=== PATIENT | female | born 1945 | race Caucasian/White ===

== ENCOUNTER 2017-06-26 08:14 | Inpatient (IN) | payer OTHER ==
[2017-06-26] MEDS ORDERED: SODIUM CHLORIDE 0.9% 1000 ML INFUS.BAG IV ONE (08:54)
[2017-06-26] MEDS ORDERED: oxyCODONE HCL 5 MG TABLET PO ONE (08:56)
--- NOTE | 2017-06-26 09:11 | PDOC ---
Attending Attestation - Resident Resident Name: Rafia Acevedo - HPI HPI: 06/26/17 12:55 Pt presents to the ED complaining of generalized malaise and productive cough for the last three days. Also complains of nausea without vomiting and decreased PO intake. Patient has been consuming copious amounts of water. - Physicial Exam PE: 06/26/17 12:58 Agree with resident's exam. Lungs are clear. Abdomen is soft, non tender and non distended. - Medical Decision Making 06/26/17 12:59 Patient presents to the eD complaining of productive cough and generalized malaise. Initial differential included ACS, less likely sepsis or electrolyte disturbance. Labs show Na of 124. Case discussed with Dr. Gomze. Will admit to obs for continued fluid restriction and monitoring.
[2017-06-26] MEDS ORDERED: oxyCODONE HCL 5 MG TABLET ONE (09:15)
--- NOTE | 2017-06-26 09:17 | PDOC ---
History of Present Illness - General Chief Complaint: Weakness Stated Complaint: COUGH, WEAKNESS Time Seen by Provider: 06/26/17 08:37 History Source: Patient - History of Present Illness Initial Comments: 06/26/17 09:07 Patient is a 71 y.o. female with a PMH of CAD (s/p CABG + 5 stents), HTN, chronic pain who presents to the ED c/o 3-4 day h/o of productive (greenish) sputum as well as weakness. Patient denies any associated fevers/chills, nausea /vomiting, constipation/diarrhea but does note decreased PO intake 2/2 to her symptoms. Patient further denies any chest pain r/o dyspnea. Patient notes she has some difficulty swallowing, however this is 2-3 months duration and is supposed to get an EGD/Barium Esophagram later today. NKDA Surgical: R hip replacement, CABG PMD: Jasper Quiñonez Past History - Past Medical History Allergies/Adverse Reactions: Allergies Allergy/AdvReac Type Severity Reaction Status Date / Time No Known Allergies Allergy Verified 06/26/17 08:36 Home Medications: Ambulatory Orders Amlodipine Besylate [Norvasc -] 5 mg PO DAILY 06/26/17 Aspirin 81 mg PO DAILY 06/26/17 Clopidogrel Bisulfate [Plavix] 75 mg PO DAILY 06/26/17 Isosorbide Mononitrate [Imdur] 60 mg PO DAILY 06/26/17 Metoprolol Succinate 100 mg PO DAILY 06/26/17 Oxycodone HCl/Acetaminophen [Endocet 10-325 mg Tablet] 1 each PO PRN PRN Simvastatin 40 mg PO HS 06/26/17 Cardiac Disorders: Yes CVA: No COPD: No HTN: Yes Hypercholesterolemia: Yes - Surgical History Cardiac Surgery: Yes (2 stents) - Suicide/Smoking/Psychosocial Hx Smoking History: Current every day smoker Have you smoked in the past 12 months: Yes Number of Cigarettes Smoked Daily: 20 Information on smoking cessation initiated: No Hx Alcohol Use: No Drug/Substance Use Hx: No Substance Use Type: None Review of Systems - Review of Systems Constitutional: No: Chills, Fever Respiratory: Yes: Cough, Productive cough Cardiac (ROS): No: Chest Pain ABD/GI: No: Constipated, Diarrhea, Nausea, Vomiting : No: Burning, Dysuria All Other Systems: Reviewed and Negative *Physical Exam - Vital Signs Last Vital Signs Temp Pulse Resp BP Pulse Ox 98.8 F 85 18 146/73 94 L 06/26/17 08:32 06/26/17 08:32 06/26/17 08:32 06/26/17 08:32 06/26/17 08:32 - Physical Exam General Appearance: Yes: Nourished, Thin HEENT: positive: EOMI, ANGEL Neck: positive: Trachea midline, Supple. negative: Lymphadenopathy (R), Lymphadenopathy (L) Respiratory/Chest: positive: Lungs Clear, Normal Breath Sounds. negative: Crackles, Rales, Rhonchi, Stridor, Wheezing Cardiovascular: positive: S1, S2 Gastrointestinal/Abdominal: positive: Flat, Soft. negative: Distended, Guarding , Rebound, Hernia, Mass Extremity: positive: Normal Capillary Refill, Normal Inspection Integumentary: positive: Normal Color, Dry, Warm Neurologic: positive: Fully Oriented, Alert ED Treatment Course - LABORATORY CBC & Chemistry Diagram: 06/26/17 19:49 06/26/17 19:49 - RADIOLOGY Radiology Studies Ordered: Category Date Time Status CHEST PA & LAT [RAD] Stat Radiology 06/26/17 08:55 Ordered Medical Decision Making - Medical Decision Making 06/26/17 09:24 Patient is a 71 y.o. female who presents with 3-4 day h/o of productive cough and weakness. On PE patient's lungs are CLTA B/L and patient is non-toxic appearing. Initial clinical suspicion for pneumonia vs. Viral URI/Influenza. PLAN 1. CXR 2. CBC, CMP 3. UA 06/26/17 10:41 CMP significant for Na 124 - case d/w Dr. Barron (covers for patient's PCP Dr. Quiñonez) - will confirm patient's chronic hyponatremia level. Recommends fluid restriction w/IV fluids. CXR pending. UA negative. Patient resting comfortably. 06/26/17 13:29 CXR shows no effusion/consolidation/infiltrate. Patient admitted to Dr. Barron - requests Na tablet + NPO. Will continue to monitor while in ED. *DC/Admit/Observation/Transfer Diagnosis at time of Disposition: Hyponatremia - Discharge Dispostion Condition at time of disposition: Fair Admit: Yes - Referrals - Patient Instructions - Post Discharge Activity
[2017-06-26 09:19] LABS: HEMOGLOBIN 9.8 GM/dL (10.7-15.3)
[2017-06-26 09:28] LABS: URINE APPEARANCE CLEAR; URINE BILIRUBIN NEGATIVE (NEGATIVE); URINE BLOOD NEGATIVE (NEGATIVE); URINE COLOR LTYELLOW; URINE GLUCOSE (UA) NEGATIVE (NEGATIVE); URINE KETONE NEGATIVE (NEGATIVE); URINE LEUK ESTERASE NEGATIVE (NEGATIVE); URINE NITRITE NEGATIVE (NEGATIVE); URINE UROBILINOGEN NEGATIVE mg/dL (0.2-1.0)
[2017-06-26 09:32] LABS: EPI CELLS RARE /HPF (FEW); URINE PROTEIN 1+ (NEGATIVE)
[2017-06-26 09:35] LABS: EOS % 0.9 % (0-4.5); LYMPH % 43.2 % (8-40); MCH 26.1 pg (25.7-33.7); MCHC 32.8 g/dl (32.0-36.0); MEAN CELL VOLUME 79.8 fl (80-96); MEAN PLT VOLUME 7.6 fl (7.5-11.1); NEUT % 43.9 % (42.8-82.8); PLATELET COUNT 321 K/MM3 (134-434); RBC 3.76 M/mm3 (3.60-5.2); RDW 17.2 % (11.6-15.6); WHITE BLOOD COUNT 6.2 K/mm3 (4.0-10.0)
[2017-06-26 09:44] LABS: ALBUMIN 3.2 g/dl (3.4-5.0); ANION GAP 9 (8-16); BLOOD UREA NITROGEN 13 mg/dL (7-18); CALCIUM 8.2 mg/dL (8.5-10.1); CHLORIDE 91 mmol/L (98-107); CO2 24 mmol/L (21-32); GLUCOSE,RANDOM 94 mg/dL (74-106)
[2017-06-26 09:47] LABS: BILIRUBIN,TOTAL 0.3 mg/dL (0.2-1.0); CREATININE 0.9 mg/dL (0.55-1.02); SGPT/ALT 18 U/L (12-78); TOT PROT 7.2 g/dl (6.4-8.2)
[2017-06-26 09:50] LABS: ALK PHOS 104 U/L (45-117)
[2017-06-26 09:58] LABS: SGOT/AST 33 U/L (15-37)
[2017-06-26 09:59] LABS: POTASSIUM 5.2 mmol/L (3.5-5.1)
[2017-06-26 10:05] LABS: SODIUM 124 mmol/L (136-145)
[2017-06-26] MEDS ORDERED: guaiFENesin 200 MG/10 ML 10 ML UNIT-DOSE CUPS PO ONE (10:45)
[2017-06-26] MEDS ORDERED: guaiFENesin 200 MG/10 ML 10 ML UNIT-DOSE CUPS ONE (11:29)
[2017-06-26] MEDS ORDERED: SODIUM CHLORIDE 1 GM TABLET PO ONE (13:28)
[2017-06-26] MEDS ORDERED: CODEINE SO4 30 MG TABLET PO ONE (13:31)
[2017-06-26] MEDS ORDERED: CODEINE SO4 30 MG TABLET ONE (14:38)
--- NOTE | 2017-06-26 15:13 | EKG ---
Test Reason : Blood Pressure : / mmHG Vent. Rate : 080 BPM Atrial Rate : 080 BPM P-R Int : 210 ms QRS Dur : 104 ms QT Int : 394 ms P-R-T Axes : 017 054 090 degrees QTc Int : 454 ms SINUS RHYTHM WITH 1ST DEGREE A-V BLOCK MODERATE VOLTAGE CRITERIA FOR LVH, MAY BE NORMAL VARIANT NONSPECIFIC T WAVE ABNORMALITY ABNORMAL ECG NO PREVIOUS ECGS AVAILABLE Confirmed by MD DARI, RADHA ([id number]) on 06/26/2017 3:13:05 PM Referred By: Confirmed By:RADHA CHAPIN MD
[2017-06-26] MEDS ORDERED: SODIUM CHLORIDE 1,000 ML IV SCH (15:45)
[2017-06-26] MEDS ORDERED: ONDANSETRON 4 MG/2 ML VIAL IVPUSH ONE (17:41)
[2017-06-26] MEDS ORDERED: ONDANSETRON 4 MG/2 ML VIAL ONE (18:07)
[2017-06-26 19:59] LABS: HEMATOCRIT 31.3 % (32.4-45.2); HEMOGLOBIN 10.2 GM/dL (10.7-15.3); MCH 26.2 pg (25.7-33.7); MCHC 32.7 g/dl (32.0-36.0); MEAN CELL VOLUME 80.2 fl (80-96); MEAN PLT VOLUME 7.1 fl (7.5-11.1); PLATELET COUNT 275 K/MM3 (134-434); RDW 17.4 % (11.6-15.6); WHITE BLOOD COUNT 4.8 K/mm3 (4.0-10.0)
[2017-06-26 20:25] LABS: ANION GAP 9 (8-16); BLOOD UREA NITROGEN 12 mg/dL (7-18); CALCIUM 8.4 mg/dL (8.5-10.1); CHLORIDE 95 mmol/L (98-107); CO2 25 mmol/L (21-32); CREATININE 0.8 mg/dL (0.55-1.02); GLUCOSE,RANDOM 93 mg/dL (74-106); POTASSIUM 4.3 mmol/L (3.5-5.1); SODIUM 129 mmol/L (136-145)
[2017-06-26] MEDS ORDERED: ATORVASTATIN CA 20 MG TABLET (FP) PO SCH (22:00)
[2017-06-26] MEDS: guaiFENesin 200 MG/10 ML 10 ML UNIT-DOSE CUPS PO PRN (23:55)
[2017-06-26] MEDS: oxyCODONE HCL 5 MG TABLET PO PRN (23:56)
[2017-06-26] MEDS: ACETAMINOPHEN 325 MG TABLET (FP) PO PRN (23:57)
[2017-06-27 03:42] VITALS: BMI 21.3
[2017-06-27] MEDS: guaiFENesin 200 MG/10 ML 10 ML UNIT-DOSE CUPS PO PRN (06:37)
[2017-06-27] MEDS: ACETAMINOPHEN 325 MG TABLET (FP) PO PRN (09:42)
[2017-06-27] MEDS: oxyCODONE HCL 5 MG TABLET PO PRN (09:42)
[2017-06-27] MEDS ORDERED: CLOPIDOGREL BISULFATE 75 MG TABLET (FP) PO SCH (10:00)
[2017-06-27] MEDS ORDERED: ISOSORBIDE MONONITRATE 60 MG TAB.SR.24H (FP) PO SCH (10:00)
[2017-06-27] MEDS ORDERED: ASPIRIN COATED 81 MG TABLET.EC PO SCH (10:00)
[2017-06-27] MEDS ORDERED: METOPROLOL SUCCINATE 100 MG TAB.SR.24H (FP) PO SCH (10:00)
[2017-06-27] MEDS ORDERED: amLODIPine BESYLATE 5 MG TABLET (FP) PO SCH (10:00)
[2017-06-27 10:53] VITALS: BP 160/77; PULSE 84; TEMP 98.5
--- NOTE | 2017-06-27 12:48 | HP ---
Admitting History and Physical - Admission Chief Complaint: cough / not feeling well History of Present Illness: Patient is a 71 y.o. female with a PMH of CAD (s/p CABG + 5 stents), HTN, chronic pain who presents to the ED c/o 3-4 day h/o of productive (greenish) sputum as well as weakness. Current Smoker denies any associated fevers/chills , nausea/vomiting, constipation/diarrhea but does note decreased PO intake 2/2 to her symptoms. Patient further denies any chest pain r/o dyspnea. She is able to provide hx , known hx of hyponatremia, takes "salt pills". History Source: Patient, Family Member, Medical Record - Past Medical History Pulmonary: Yes: Bronchitis, Other (current smoker) Gastrointestinal: Yes: Gastritis, GERD Reproductive: Yes: Postmenopausal ...: No - Smoking History Smoking history: Current every day smoker Have you smoked in the past 12 months: Yes Aproximately how many cigarettes per day: 20 - Alcohol/Substance Use Hx Alcohol Use: No - Social History Usual Living Arrangement: Yes: With Spouse History of Recent Travel: No Home Medications - Allergies Allergies/Adverse Reactions: Allergies Allergy/AdvReac Type Severity Reaction Status Date / Time No Known Allergies Allergy Verified 06/26/17 08:36 - Home Medications Home Medications: Ambulatory Orders Amlodipine Besylate [Norvasc -] 5 mg PO DAILY 06/26/17 Aspirin 81 mg PO DAILY 06/26/17 Clopidogrel Bisulfate [Plavix] 75 mg PO DAILY 06/26/17 Isosorbide Mononitrate [Imdur] 60 mg PO DAILY 06/26/17 Metoprolol Succinate 100 mg PO DAILY 06/26/17 Oxycodone HCl/Acetaminophen [Endocet 10-325 mg Tablet] 1 each PO PRN PRN Simvastatin 40 mg PO HS 06/26/17 Review of Systems - Review of Systems Constitutional: reports: Weakness. denies: Chills, Fever, Loss of Appetite Eyes: reports: No Symptoms HENT: reports: No Symptoms Neck: reports: No Symptoms Cardiovascular: reports: No Symptoms Respiratory: reports: Cough. denies: Hemoptysis, Orthopnea, SOB on Exertion, Wheezing Gastrointestinal: reports: Indigestion Genitourinary: reports: No Symptoms Breasts: reports: No Symptoms Reported Musculoskeletal: reports: No Symptoms Integumentary: reports: No Symptoms Neurological: reports: No Symptoms Endocrine: reports: No Symptoms Hematology/Lymphatic: reports: No Symptoms Psychiatric: reports: No Symptoms Physical Examination Vital Signs: Vital Signs Temperature 98.5 F 06/27/17 09:00 Pulse Rate 84 06/27/17 09:00 Respiratory Rate 20 06/27/17 09:00 Blood Pressure 160/77 06/27/17 09:00 O2 Sat by Pulse Oximetry (%) 90 L 06/27/17 09:00 Constitutional: Yes: Well Nourished, No Distress, Anxious Eyes: Yes: Conjunctiva Clear, EOM Intact HENT: Yes: Atraumatic, Normocephalic Neck: Yes: Supple, Trachea Midline Cardiovascular: Yes: Regular Rate and Rhythm Respiratory: Yes: CTA Bilaterally Gastrointestinal: Yes: Normal Bowel Sounds Renal/: Yes: WNL Breast(s): Yes: WNL Musculoskeletal: Yes: WNL Extremities: Yes: WNL Edema: No Peripheral Pulses: Left Radial: 2+, Right Radial: 2+, Left Doralis Pedis: 2+, Right Dorsalis Pedis: 2+, Left Femoral: 2+, Right Femoral: 2+ Integumentary: Yes: WNL Neurological: Yes: Alert, Oriented Psychiatric: Yes: Alert, Oriented Labs: CBC, BMP 06/26/17 19:49 Problem List - Problems (1) Hyponatremia Assessment/Plan: restrict fluids NS @50cc overnight follow labs Code(s): E87.1 - HYPO-OSMOLALITY AND HYPONATREMIA (2) Cough Code(s): R05 - COUGH (3) CAD (coronary artery disease) Code(s): I25.10 - ATHSCL HEART DISEASE OF [place] CORONARY ARTERY W/O ANG PCTRS (4) Smoker Code(s): F17.200 - NICOTINE DEPENDENCE, UNSPECIFIED, UNCOMPLICATED (5) Smokers' cough Code(s): J41.0 - SIMPLE CHRONIC BRONCHITIS
[2017-06-27 12:54] LABS: ALBUMIN 3.1 g/dl (3.4-5.0); ALK PHOS 97 U/L (45-117); ANION GAP 9 (8-16); BILIRUBIN,TOTAL 0.2 mg/dL (0.2-1.0); BLOOD UREA NITROGEN 15 mg/dL (7-18); CHLORIDE 100 mmol/L (98-107); CO2 23 mmol/L (21-32); CREATININE 0.8 mg/dL (0.55-1.02); GLUCOSE,RANDOM 103 mg/dL (74-106); POTASSIUM 4.1 mmol/L (3.5-5.1); SGOT/AST 21 U/L (15-37); SGPT/ALT 18 U/L (12-78); SODIUM 132 mmol/L (136-145); TOT PROT 6.8 g/dl (6.4-8.2)
== END 2017-06-27 13:43 | disposition home or self-care (01) | DRG 641 ==
LOC: JER 08:14 → SUPCPDRO 08:14 → JERBED 13:00 → OBSVTOIN 15:45 → J8W 20:45
PROVIDERS: ADMIT Family Medicine; ATTEND Family Medicine
DX: E87.1 Hypo-osmolality and hyponatremia (principal); I25.10 Atherosclerotic heart disease of native coronary artery without angina pectoris; Z98.61 Coronary angioplasty status; Z95.1 Presence of aortocoronary bypass graft; R05 Cough; I10 Essential (primary) hypertension; F17.210 Nicotine dependence, cigarettes, uncomplicated
CPT/HCPCS: 36415; 71046-TC; 80048; 80053; 81003; 81015; 82550; 84484; 85025; 85027; 87804; 93005; 93010; 99284-25; G0378

== ENCOUNTER 2017-08-10 10:14 | Emergency (ER) | payer OTHER ==
[2017-08-10 10:33] VITALS: TEMP 98.2; BMI 20.9
--- NOTE | 2017-08-10 12:23 | PDOC ---
History of Present Illness - General Chief Complaint: Pain, Acute Stated Complaint: WEAKNESS Time Seen by Provider: 08/10/17 11:03 History Source: Patient, Family - History of Present Illness Timing/Duration: reports: other Past History - Past Medical History Allergies/Adverse Reactions: Allergies Allergy/AdvReac Type Severity Reaction Status Date / Time No Known Allergies Allergy Verified 08/10/17 10:29 Home Medications: Ambulatory Orders Clopidogrel Bisulfate [Plavix] 75 mg PO DAILY 06/26/17 Oxycodone HCl/Acetaminophen [Endocet 10-325 mg Tablet] 1 each PO PRN PRN Simvastatin 40 mg PO HS 06/26/17 Amlodipine Besylate [Norvasc -] 5 mg PO DAILY tablet 06/27/17 Aspirin Coated [Ecotrin -] 81 mg PO DAILY tablet.ec 06/27/17 Metoprolol Succinate [Toprol XL -] 100 mg PO DAILY tab.sr.24h 06/27/17 Isosorbide Mononitrate [Imdur -] 90 mg PO DAILY 08/10/17 Mag Hydrox/Al Hydrox/Simeth [Mylanta *Suspension*] 30 ml PO Q6H #1 cup 08/10/17 Nitroglycerin Sublingual [Nitrostat -] 0.4 mg SL PRN PRN 08/10/17 Ondansetron HCl [Zofran] 4 mg PO Q8H #15 tablet 08/10/17 Cardiac Disorders: Yes CVA: No COPD: No HTN: Yes Hypercholesterolemia: Yes - Surgical History Cardiac Surgery: Yes (2 stents) - Suicide/Smoking/Psychosocial Hx Smoking History: Current every day smoker Have you smoked in the past 12 months: Yes Number of Cigarettes Smoked Daily: 6 Information on smoking cessation initiated: No Hx Alcohol Use: No Drug/Substance Use Hx: No Substance Use Type: None Review of Systems - Review of Systems Constitutional: Yes: Chills, Fever, Weakness Respiratory: No: Shortness of Breath Cardiac (ROS): No: Chest Pain ABD/GI: Yes: Nausea, Abdominal cramping. No: Blood Streaked Bowels, Constipated , Diarrhea, Tarry Stools : No: Dysuria *Physical Exam - Vital Signs Last Vital Signs Temp Pulse Resp BP Pulse Ox 98.2 F 90 19 129/74 97 08/10/17 10:30 08/10/17 10:30 08/10/17 10:30 08/10/17 10:30 08/10/17 10:30 - Physical Exam General Appearance: Yes: Appropriately Dressed. No: Apparent Distress HEENT: positive: Normal Voice Neck: positive: Supple Respiratory/Chest: positive: Lungs Clear, Normal Breath Sounds. negative: Respiratory Distress Cardiovascular: positive: Regular Rate, S1, S2 Gastrointestinal/Abdominal: positive: Soft. negative: Tender Integumentary: positive: Dry, Warm Neurologic: positive: Fully Oriented, Alert, Normal Mood/Affect ED Treatment Course - LABORATORY CBC & Chemistry Diagram: 08/10/17 12:48 08/10/17 12:48 - RADIOLOGY Radiology Studies Ordered: Category Date Time Status CHEST X-RAY PORTABLE* [RAD] Stat Radiology 08/10/17 11:47 Taken Medical Decision Making - Medical Decision Making 08/10/17 12:16 35-year-old female, history of CAD with stents, hypertension, hyponatremia on "salt" tabs, presbyoesophagus, solid food dysphagia, diagnosed with esophageal stricture on upper GI/barium swallow 1 month ago, follows up with Dr. Hernandez of GI, presenting with generalized weakness since this a.m. Patient states for the past year has had poor appetite and intermittent nausea with abdominal discomfort and weight loss. States she can mostly tolerate a soft diet and has no issues with liquids. During workup, was diagnosed with esophageal stricture. States she is to have an endoscopy in the near future with GI at [facility]. Not currently taking any GI meds. No acute changes in her bowel movements. Patient denies any chest pain or shortness of breath. See exam History of esophageal stricture with chronic dysphagia, anorexia and nausea with generalized weakness this am Stable w/ unremarkable exam M/l dehydration vs metaobolic, less likely infectious or cardiac -labs -IV hydration -GI c/s -? dispo 08/10/17 12:59 08/10/17 13:59 Patient c/o nausea at this time. Will give Zofran and reassess. Labs and EKG unremarkable. Pending call back from Dr. Hernandez to discuss management 08/10/17 14:21 Case d/w Dr. Hernandez of GI, states patient has esophageal stricture but cardiology not clearing patient for dilatation with Dr. Michele Martinez at [facility]. States that patient should follow-up with Dr. Martinez if discharged, and should be started on Mylanta 1 tablespoon 3 times a day. States he is also concerned that patient might have an ulcer and recommended that we contact patient's product development worker to ascertain if patient needs to continue on both plavix and aspirin at this time. 08/10/17 14:[address] Hanson, covering MD for Dr Napoles, pt's PMD, who states that if patient had recent stent, which she had April of 2017, that patient most likely need to continue on both aspirin and plavix. Recommends that I can discuss case w/ Dr Yanez, who is the cards that pt most likely f/u with. I contacted office and was told by staff that they do not know how to get in touch with MD. At this time, patient's nausea has since resolved with zofran and able to tolerate po. Will discharge on Zofran and Mylanta as discussed with Dr. Hernandez and have patient contact Dr. Martinez for follow-up tomorrow. Daughter agrees with plan and feels safe taking patient home. Pt to continue blood thinners at this time. Reasons to return to ER discussed with pt and family *DC/Admit/Observation/Transfer Diagnosis at time of Disposition: Weakness Dysphagia Qualifiers: Dysphagia type: unspecified Qualified Code(s): R13.10 - Dysphagia, unspecified - Discharge Dispostion Condition at time of disposition: Improved - Prescriptions Prescriptions: Mag Hydrox/Al Hydrox/Simeth [Mylanta *Suspension*] 30 ml PO Q6H #1 cup Ondansetron HCl [Zofran] 4 mg PO Q8H #15 tablet - Referrals Referrals: Jasper Napoles [Primary Care Provider] - - Patient Instructions Printed Discharge Instructions: DI for Dehydration -- Adult Additional Instructions: Your weakness is possibly due to dehydration. Continue to maintain adequate hydration and return to ER for worsening of symptoms. Please contact Dr. Martinez tomorrow for follow-up Continue on your cardiac meds - Post Discharge Activity
[2017-08-10 12:57] LABS: EOS % 0.8 % (0-4.5); HEMATOCRIT 30.8 % (32.4-45.2); HEMOGLOBIN 10.5 GM/dL (10.7-15.3); LYMPH % 20.6 % (8-40); MCH 27.2 pg (25.7-33.7); MCHC 34.1 g/dl (32.0-36.0); MEAN CELL VOLUME 79.9 fl (80-96); MEAN PLT VOLUME 7.3 fl (7.5-11.1); MONO % 4.8 % (3.8-10.2); NEUT % 72.8 % (42.8-82.8); PLATELET COUNT 324 K/MM3 (134-434); RBC 3.86 M/mm3 (3.60-5.2); RDW 17.1 % (11.6-15.6); WHITE BLOOD COUNT 8.5 K/mm3 (4.0-10.0)
[2017-08-10] MEDS ORDERED: SODIUM CHLORIDE 500 ML IV STA (13:00)
[2017-08-10] MEDS ORDERED: RANITIDINE HCL 150 MG TABLET (FP) PO ONE (13:02)
[2017-08-10] MEDS ORDERED: MAG HYDROX/AL HYDROX/SIMETH 355 ML ORAL.SUSP PO ONE (13:02)
[2017-08-10] MEDS ORDERED: RANITIDINE HCL 150 MG TABLET (FP) ONE (13:06)
[2017-08-10] MEDS ORDERED: MAG HYDROX/AL HYDROX/SIMETH 30 ML UNIT-DOSE CUP ONE (13:07)
[2017-08-10 13:15] LABS: URINE APPEARANCE CLEAR; URINE BILIRUBIN NEGATIVE (NEGATIVE); URINE BLOOD NEGATIVE (NEGATIVE); URINE COLOR LTYELLOW; URINE GLUCOSE (UA) NEGATIVE (NEGATIVE); URINE KETONE NEGATIVE (NEGATIVE); URINE LEUK ESTERASE NEGATIVE (NEGATIVE); URINE NITRITE NEGATIVE (NEGATIVE); URINE PROTEIN NEGATIVE (NEGATIVE); URINE UROBILINOGEN NEGATIVE mg/dL (0.2-1.0)
[2017-08-10 13:21] LABS: ALBUMIN 3.4 g/dl (3.4-5.0); ALK PHOS 98 U/L (45-117); ANION GAP 12 (8-16); BILIRUBIN,TOTAL 0.3 mg/dL (0.2-1.0); BLOOD UREA NITROGEN 15 mg/dL (7-18); CALCIUM 8.8 mg/dL (8.5-10.1); CHLORIDE 96 mmol/L (98-107); CO2 24 mmol/L (21-32); CREATININE 0.8 mg/dL (0.55-1.02); GLUCOSE,RANDOM 102 mg/dL (74-106); LIPASE 120 U/L (73-393); POTASSIUM 4.9 mmol/L (3.5-5.1); SGOT/AST 18 U/L (15-37); SGPT/ALT 14 U/L (12-78); SODIUM 132 mmol/L (136-145); TOT PROT 7.5 g/dl (6.4-8.2)
[2017-08-10] MEDS ORDERED: ONDANSETRON 4 MG/2 ML VIAL IVPUSH ONE (14:09)
[2017-08-10] MEDS ORDERED: ONDANSETRON 4 MG/2 ML VIAL ONE (14:10)
[2017-08-10 14:56] VITALS: BP 131/65; PULSE 85
--- NOTE | 2017-08-11 14:28 | EKG ---
Test Reason : Blood Pressure : / mmHG Vent. Rate : 071 BPM Atrial Rate : 071 BPM P-R Int : 224 ms QRS Dur : 098 ms QT Int : 408 ms P-R-T Axes : 012 041 111 degrees QTc Int : 443 ms SINUS RHYTHM WITH 1ST DEGREE A-V BLOCK WITH OCCASIONAL PREMATURE VENTRICULAR COMPLEXES LEFT VENTRICULAR HYPERTROPHY WITH REPOLARIZATION ABNORMALITY ABNORMAL ECG WHEN COMPARED WITH ECG OF 26-JUN-2017 09:19, PREMATURE VENTRICULAR COMPLEXES ARE NOW PRESENT Confirmed by MD Jacques, Devon ([id number]) on 08/11/2017 2:28:19 PM Referred By: Confirmed By:Devon Hanna MD
== END 2017-08-10 14:56 | disposition home or self-care (01) ==
LOC: JER 10:14
PROC: 3E033GC Introduction of Other Therapeutic Substance into Peripheral Vein, Percutaneous Approach (ICD-10-PCS; principal; 2017-08-10)
PROC: 3E0337Z Introduction of Electrolytic and Water Balance Substance into Peripheral Vein, Percutaneous Approach (ICD-10-PCS; 2017-08-10)
DX: R53.1 Weakness (principal); I10 Essential (primary) hypertension; I25.10 Atherosclerotic heart disease of native coronary artery without angina pectoris; Z95.5 Presence of coronary angioplasty implant and graft; E87.1 Hypo-osmolality and hyponatremia; R13.10 Dysphagia, unspecified; Z79.01 Long term (current) use of anticoagulants; Z79.82 Long term (current) use of aspirin
CPT/HCPCS: 36415; 71045-TC-FY; 80053; 81003; 82550; 83690; 83880; 84484; 85025; 93005; 93010; 99285-25

== ENCOUNTER 2017-10-26 07:23 | Emergency (ER) | payer OTHER ==
--- NOTE | 2017-10-26 08:05 | PDOC ---
History of Present Illness - General History Source: Patient Exam Limitations: No Limitations - History of Present Illness Initial Comments: 10/26/17 08:33 The patient is a 71 year old female with a significant PMH of CAD (s/p CABG + 5 stents), HTN, chronic pain, hyponatremia, presbyoesophagus, solid food dysphagia , diagnosed with esophageal stricture on upper GI/barium swallow (follows up with Dr. Hernandez, GI) who presents to the emergency department with midsternal discomfort and nausea since 6PM yesterday. The patient states she has been experiencing constant midsternal discomfort, non-radiating with associated dizziness, weakness, poor appetite, and slow flow urine. The patient was seen recently at [facility], given IV fluids, and admitted overnight for hyponatremia. The patient reports none of her current medications are alleviating the discomfort, which she states is more severe than usual prompting her to come to the ER. The patient denies chest pain, shortness of breath, and headache. Denies fever, chills, vomit, diarrhea and constipation. Denies dysuria, frequency, urgency and hematuria. Allergies: NKA Past surgical history: R hip replacement, CABG PCP: Jasper Quiñonez <Krysta Dill - Last Filed: 10/26/17 11:22> <Christi Bryant - Last Filed: 10/26/17 20:49> <Celi Mo - Last Filed: 10/26/17 21:54> <Yadira Sanchez - Last Filed: 10/30/17 01:08> - General Chief Complaint: Pain, Acute Stated Complaint: VOMITING,HTN,ABD PAIN Time Seen by Provider: 10/26/17 08:05 Past History <Krysta Dill - Last Filed: 10/26/17 11:22> <Christi Bryant - Last Filed: 10/26/17 20:49> <Celi Mo - Last Filed: 10/26/17 21:54> - Past Medical History Cardiac Disorders: Yes CVA: No COPD: No HTN: Yes Hypercholesterolemia: Yes - Surgical History Cardiac Surgery: Yes (2 stents) - Suicide/Smoking/Psychosocial Hx Smoking History: Current every day smoker Have you smoked in the past 12 months: Yes Number of Cigarettes Smoked Daily: 6 Information on smoking cessation initiated: No Hx Alcohol Use: No Drug/Substance Use Hx: No Substance Use Type: None <Yadira Sanchez - Last Filed: 10/30/17 01:08> - Past Medical History Allergies/Adverse Reactions: Allergies Allergy/AdvReac Type Severity Reaction Status Date / Time lisinopril Allergy Verified 10/26/17 07:49 Home Medications: Ambulatory Orders Clopidogrel Bisulfate [Plavix] 75 mg PO DAILY 06/26/17 Oxycodone HCl/Acetaminophen [Endocet 10-325 mg Tablet] 1 each PO PRN PRN Simvastatin 40 mg PO HS 06/26/17 Amlodipine Besylate [Norvasc -] 5 mg PO DAILY tablet 06/27/17 Aspirin Coated [Ecotrin -] 81 mg PO DAILY tablet.ec 06/27/17 Metoprolol Succinate [Toprol XL -] 100 mg PO DAILY tab.sr.24h 06/27/17 Isosorbide Mononitrate [Imdur -] 90 mg PO DAILY 08/10/17 Mag Hydrox/Al Hydrox/Simeth [Mylanta *Suspension*] 30 ml PO Q6H #1 cup 08/10/17 Nitroglycerin Sublingual [Nitrostat -] 0.4 mg SL PRN PRN 08/10/17 Ondansetron HCl [Zofran] 4 mg PO Q8H #15 tablet 08/10/17 Review of Systems - Review of Systems Able to Perform ROS?: Yes Comments:: 10/26/17 08:35 GENERAL/CONSTITUTIONAL: No fever or chills. (+) Weakness. HEAD, EYES, EARS, NOSE AND THROAT: No change in vision. No ear pain or discharge. No sore throat. CARDIOVASCULAR: No chest pain or shortness of breath. RESPIRATORY: No cough, wheezing, or hemoptysis. GASTROINTESTINAL: (+) Nausea. (+) Midsternal discomfort. No vomiting, diarrhea or constipation. GENITOURINARY: No dysuria, frequency, or change in urination. MUSCULOSKELETAL: No joint or muscle swelling or pain. No neck or back pain. SKIN: No rash NEUROLOGIC: No headache, vertigo, loss of consciousness, or change in strength/ sensation. ENDOCRINE: No increased thirst. No abnormal weight change. HEMATOLOGIC/LYMPHATIC: No anemia, easy bleeding, or history of blood clots. ALLERGIC/IMMUNOLOGIC: No hives or skin allergy. <Krysta Dill - Last Filed: 10/26/17 11:22> *Physical Exam - Vital Signs Last Vital Signs Temp Pulse Resp BP Pulse Ox 97.5 F L 86 18 153/94 100 10/26/17 07:46 10/26/17 07:46 10/26/17 07:46 10/26/17 07:46 10/26/17 07:46 - Physical Exam Comments: 10/26/17 09:36 GENERAL: Awake, alert, and fully oriented, in no acute distress HEAD: No signs of trauma EYES: PERRLA, EOMI, sclera anicteric, conjunctiva clear ENT: Auricles normal inspection, hearing grossly normal, nares patent, oropharynx clear without exudates. Moist mucosa NECK: Normal ROM, supple, no lymphadenopathy, JVD, or masses LUNGS: Breath sounds equal, clear to auscultation bilaterally. No wheezes, and no crackles HEART: Regular rate and rhythm, normal S1 and S2, no murmurs, rubs or gallops ABDOMEN: (+) Tenderness to the epigastric area. Soft, normoactive bowel sounds. No guarding, no rebound. No masses EXTREMITIES: Normal range of motion, no edema. No clubbing or cyanosis. No cords, erythema, or tenderness NEUROLOGICAL: Cranial nerves II through XII grossly intact. Normal speech, normal gait SKIN: Warm, Dry, normal turgor, no rashes or lesions noted. <Krysta Dill - Last Filed: 10/26/17 11:22> - Vital Signs Last Vital Signs Temp Pulse Resp BP Pulse Ox 98.2 F 75 16 157/89 96 10/26/17 18:42 10/26/17 18:42 10/26/17 18:42 10/26/17 18:42 10/26/17 18:42 <Christi Bryant - Last Filed: 10/26/17 20:49> - Vital Signs Last Vital Signs Temp Pulse Resp BP Pulse Ox 98.2 F 75 16 157/89 96 10/26/17 18:42 10/26/17 18:42 10/26/17 18:42 10/26/17 18:42 10/26/17 18:42 <Celi Mo - Last Filed: 10/26/17 21:54> - Vital Signs Last Vital Signs Temp Pulse Resp BP Pulse Ox 97.5 F L 86 18 153/94 100 10/26/17 07:46 10/26/17 07:46 10/26/17 07:46 10/26/17 07:46 10/26/17 07:46 <Yadira Sanchez - Last Filed: 10/30/17 01:08> Moderate Sedation - Procedure Monitoring Vital Signs: Vital Signs Temp Pulse Resp BP Pulse Ox 97.5 F L 86 18 153/94 100 10/26/17 07:46 10/26/17 07:46 10/26/17 07:46 10/26/17 07:46 10/26/17 07:46 <Krysta Dill - Last Filed: 10/26/17 11:22> - Procedure Monitoring Vital Signs: Vital Signs Temp Pulse Resp BP Pulse Ox 98.2 F 75 16 157/89 96 10/26/17 18:42 10/26/17 18:42 10/26/17 18:42 10/26/17 18:42 10/26/17 18:42 <Christi Bryant - Last Filed: 10/26/17 20:49> - Procedure Monitoring Vital Signs: Vital Signs Temp Pulse Resp BP Pulse Ox 98.2 F 75 16 157/89 96 10/26/17 18:42 10/26/17 18:42 10/26/17 18:42 10/26/17 18:42 10/26/17 18:42 <Celi Mo - Last Filed: 10/26/17 21:54> - Procedure Monitoring Vital Signs: Vital Signs Temp Pulse Resp BP Pulse Ox 97.5 F L 86 18 153/94 100 10/26/17 07:46 10/26/17 07:46 10/26/17 07:46 10/26/17 07:46 10/26/17 07:46 <Yadira Sanchez - Last Filed: 10/30/17 01:08> ED Treatment Course - LABORATORY CBC & Chemistry Diagram: 10/26/17 09:40 10/26/17 09:40 <Krysta Dill - Last Filed: 10/26/17 11:22> - LABORATORY CBC & Chemistry Diagram: 10/26/17 09:40 10/26/17 09:40 - ADDITIONAL ORDERS Additional order review: Laboratory Results 10/26/17 10/26/17 10/26/17 15:27 09:50 09:40 Sodium 122 L* Potassium 4.5 Chloride 90 L Carbon Dioxide 23 Anion Gap 9 BUN 9 Creatinine 0.8 Creat Clearance w eGFR > 60 Random Glucose 109 H Calcium 8.6 Total Bilirubin 0.4 D AST 82 H ALT 24 Alkaline Phosphatase 105 Creatine Kinase 321 H 380 H Creatine Kinase Index 9.8 H* 11.5 H* CK-MB (CK-2) 31.721 H 44.059 H Troponin I 16.40 H* 16.90 H* Total Protein 6.8 Albumin 3.3 L Urine Color Ltyellow Urine Appearance Clear Urine pH 6.0 Ur Specific [place] 1.009 Urine Protein 2+ H Urine Glucose (UA) Negative Urine Ketones Trace H Urine Blood Negative Urine Nitrite Negative Urine Bilirubin Negative Urine Urobilinogen Negative Ur Leukocyte Esterase Negative Urine WBC (Auto) 1 Urine RBC (Auto) None Ur Epithelial Cells Rare Urine Mucus Rare 10/26/17 09:40 RBC 3.73 MCV 81.4 MCHC 32.8 RDW 20.6 H D MPV 8.1 D Neutrophils % 78.5 Lymphocytes % 14.4 D Monocytes % 6.7 Eosinophils % 0.1 D Basophils % 0.3 - Medications Given in the ED: ED Medications Discontinued Medications Generic Name Dose Route Start Last Admin Trade Name Freq PRN Reason Stop Dose Admin Aspirin 162 mg 10/26/17 11:01 10/26/17 11:21 Asa - PO 10/26/17 11:02 162 mg ONCE ONE Administration Aspirin 162 mg 10/26/17 14:33 10/26/17 14:33 Asa - PO 10/26/17 14:34 162 mg ONCE ONE Administration Atorvastatin Calcium 80 mg 10/26/17 14:32 10/26/17 14:37 Lipitor - PO 10/26/17 14:33 80 mg ONCE ONE Administration Clopidogrel Bisulfate 75 mg 10/26/17 10:00 10/26/17 10:00 Plavix - PO 10/26/17 10:01 75 mg ONCE ONE Administration Heparin Sodium (Porcine) 3,200 unit 10/26/17 11:15 10/26/17 11:15 Heparin - IVPUSH 10/26/17 11:16 3,200 unit ONCE ONE Administration Metoprolol Tartrate 100 mg 10/26/17 09:57 10/26/17 10:00 Lopressor - PO 10/26/17 09:58 100 mg ONCE ONE Administration Nitroglycerin 0.4 mg 10/26/17 11:00 10/26/17 11:00 Nitrostat - SL 10/26/17 11:01 0.4 mg ONCE ONE Administration Nitroglycerin 40 mcg 10/26/17 11:45 10/26/17 12:17 Tridil Injection - IVPB Not Given TITR RICO Pantoprazole Sodium 40 mg 10/26/17 08:32 10/26/17 08:35 Protonix Iv IVPUSH 10/26/17 08:33 40 mg ONCE ONE Administration Sodium Chloride 500 ml 10/26/17 08:32 10/26/17 08:35 Normal Saline - IV 10/26/17 08:33 500 ml ONCE ONE Administration <Christi Bryant - Last Filed: 10/26/17 20:49> - LABORATORY CBC & Chemistry Diagram: 10/26/17 09:40 10/26/17 09:40 - ADDITIONAL ORDERS Additional order review: Laboratory Results 10/26/17 10/26/17 10/26/17 15:27 09:50 09:40 Sodium 122 L* Potassium 4.5 Chloride 90 L Carbon Dioxide 23 Anion Gap 9 BUN 9 Creatinine 0.8 Creat Clearance w eGFR > 60 Random Glucose 109 H Calcium 8.6 Total Bilirubin 0.4 D AST 82 H ALT 24 Alkaline Phosphatase 105 Creatine Kinase 321 H 380 H Creatine Kinase Index 9.8 H* 11.5 H* CK-MB (CK-2) 31.721 H 44.059 H Troponin I 16.40 H* 16.90 H* Total Protein 6.8 Albumin 3.3 L Urine Color Ltyellow Urine Appearance Clear Urine pH 6.0 Ur Specific [place] 1.009 Urine Protein 2+ H Urine Glucose (UA) Negative Urine Ketones Trace H Urine Blood Negative Urine Nitrite Negative Urine Bilirubin Negative Urine Urobilinogen Negative Ur Leukocyte Esterase Negative Urine WBC (Auto) 1 Urine RBC (Auto) None Ur Epithelial Cells Rare Urine Mucus Rare 10/26/17 09:40 RBC 3.73 MCV 81.4 MCHC 32.8 RDW 20.6 H D MPV 8.1 D Neutrophils % 78.5 Lymphocytes % 14.4 D Monocytes % 6.7 Eosinophils % 0.1 D Basophils % 0.3 - Medications Given in the ED: ED Medications Discontinued Medications Generic Name Dose Route Start Last Admin Trade Name Mark PRN Reason Stop Dose Admin Aspirin 162 mg 10/26/17 11:01 10/26/17 11:21 Asa - PO 10/26/17 11:02 162 mg ONCE ONE Administration Aspirin 162 mg 10/26/17 14:33 10/26/17 14:33 Asa - PO 10/26/17 14:34 162 mg ONCE ONE Administration Atorvastatin Calcium 80 mg 10/26/17 14:32 10/26/17 14:37 Lipitor - PO 10/26/17 14:33 80 mg ONCE ONE Administration Clopidogrel Bisulfate 75 mg 10/26/17 10:00 10/26/17 10:00 Plavix - PO 10/26/17 10:01 75 mg ONCE ONE Administration Heparin Sodium (Porcine) 3,200 unit 10/26/17 11:15 10/26/17 11:15 Heparin - IVPUSH 10/26/17 11:16 3,200 unit ONCE ONE Administration Metoprolol Tartrate 100 mg 10/26/17 09:57 10/26/17 10:00 Lopressor - PO 10/26/17 09:58 100 mg ONCE ONE Administration Nitroglycerin 0.4 mg 10/26/17 11:00 10/26/17 11:00 Nitrostat - SL 10/26/17 11:01 0.4 mg ONCE ONE Administration Nitroglycerin 40 mcg 10/26/17 11:45 10/26/17 12:17 Tridil Injection - IVPB Not Given TITR RICO Pantoprazole Sodium 40 mg 10/26/17 08:32 10/26/17 08:35 Protonix Iv IVPUSH 10/26/17 08:33 40 mg ONCE ONE Administration Sodium Chloride 500 ml 10/26/17 08:32 10/26/17 08:35 Normal Saline - IV 10/26/17 08:33 500 ml ONCE ONE Administration <Celi Mo - Last Filed: 10/26/17 21:54> - LABORATORY CBC & Chemistry Diagram: 10/26/17 09:40 10/26/17 09:40 <Yadira Sanchez - Last Filed: 10/30/17 01:08> Medical Decision Making - Medical Decision Making 10/26/17 11:[address] Yan (curing oven tender). 10/26/17 11:[address] Barron (covering for Dr. Napoles). 10/26/17 11:19 Dr. Virk was paged, Dr. Bone will call back. <Krysta Dill - Last Filed: 10/26/17 11:22> - Medical Decision Making 10/26/17 20:50 Dr. Velázquez CCU resident, we gave report at 8:16 PM, they expect the transfer to happen soon. <Christi Bryant - Last Filed: 10/26/17 20:49> - Critical Care Time Total Critical Care Time (minutes): 60 Critical Care Statement: The care of this patient involved high complexity decision making to prevent further life threatening deterioration of the patient 's condition and/or to evaluate & treat vital organ system(s) failure or risk of failure. - Medical Decision Making 10/30/17 01:06 Pt presents to the ED complaining of epigastric pressure that was similar to her previous pain secondary to esophageal strictures. Also complains of nausea and vomiting. EKG was unchanged from previous. Cardiac profile sent to rule out MN and is positive. Patient given ASA and started on heparin and nitro drip. Case discussed with Dr. Nguyễn, who recommended transfer to [facility] CCU. Pain improved with nitro drip. <Yadira Sanchez - Last Filed: 10/30/17 01:08> *DC/Admit/Observation/Transfer - Attestations Scribe Attestion: 10/26/17 08:37 Documentation prepared by Krysta Dill, acting as medical office rep for Yadira Sanchez MD. <Krysta Dill - Last Filed: 10/26/17 11:22> <Christi Bryant - Last Filed: 10/26/17 20:49> - Transfer to Acute Care Facility Receiving Facility: [place] (SPOKE W CCU DR VELÁZQUEZ) <Celi Mo - Last Filed: 10/26/17 21:54> <Yadira Sanchez - Last Filed: 10/30/17 01:08> Diagnosis at time of Disposition: Non-ST elevated myocardial infarction (non-STEMI) - Discharge Dispostion Disposition: TRANSFER ACUTE CARE/OTHER HOSP - Referrals Referrals: Jasper Napoles [Primary Care Provider] - - Patient Instructions - Post Discharge Activity
[2017-10-26] MEDS ORDERED: PANTOPRAZOLE SODIUM 40 MG VIAL IVPUSH ONE (08:32)
[2017-10-26] MEDS ORDERED: SODIUM CHLORIDE 0.9% 500 ML INFUS.BAG IV ONE (08:32)
[2017-10-26] MEDS ORDERED: PANTOPRAZOLE SODIUM 40 MG VIAL ONE (08:56)
[2017-10-26] MEDS ORDERED: METOPROLOL TARTRATE 50 MG TABLET (FP) PO ONE (09:57)
[2017-10-26] MEDS ORDERED: CLOPIDOGREL BISULFATE 75 MG TABLET (FP) PO ONE (10:00)
[2017-10-26 10:33] LABS: ALBUMIN 3.3 g/dl (3.4-5.0); ANION GAP 9 (8-16); BASO % 0.3 % (0-2.0); BLOOD UREA NITROGEN 9 mg/dL (7-18); CALCIUM 8.6 mg/dL (8.5-10.1); CHLORIDE 90 mmol/L (98-107); CO2 23 mmol/L (21-32); EOS % 0.1 % (0-4.5); GLUCOSE,RANDOM 109 mg/dL (74-106); HEMATOCRIT 30.4 % (32.4-45.2); LYMPH % 14.4 % (8-40); MCH 26.7 pg (25.7-33.7); MCHC 32.8 g/dl (32.0-36.0); MEAN CELL VOLUME 81.4 fl (80-96); MEAN PLT VOLUME 8.1 fl (7.5-11.1); MONO % 6.7 % (3.8-10.2); NEUT % 78.5 % (42.8-82.8); PLATELET COUNT 308 K/MM3 (134-434); POTASSIUM 4.5 mmol/L (3.5-5.1); RBC 3.73 M/mm3 (3.60-5.2); RDW 20.6 % (11.6-15.6)
[2017-10-26 10:50] LABS: ALK PHOS 105 U/L (45-117); BILIRUBIN,TOTAL 0.4 mg/dL (0.2-1.0); CREATININE 0.8 mg/dL (0.55-1.02); SGOT/AST 82 U/L (15-37); SGPT/ALT 24 U/L (12-78); TOT PROT 6.8 g/dl (6.4-8.2)
[2017-10-26 10:56] LABS: SODIUM 122 mmol/L (136-145)
[2017-10-26 11:00] LABS: URINE APPEARANCE CLEAR; URINE BILIRUBIN NEGATIVE (<2.0 mg/dL); URINE BLOOD NEGATIVE (NEGATIVE); URINE COLOR LTYELLOW; URINE GLUCOSE (UA) NEGATIVE (NEGATIVE); URINE KETONE TRACE (NEGATIVE); URINE LEUK ESTERASE NEGATIVE (NEGATIVE); URINE NITRITE NEGATIVE (NEGATIVE); URINE UROBILINOGEN NEGATIVE mg/dL (0.2-1.0)
[2017-10-26] MEDS ORDERED: NITROGLYCERIN SUBLINGUAL 1/150 0.4 MG TAB SL ONE (11:00)
[2017-10-26] MEDS ORDERED: ASPIRIN 81 MG CHEWABLE TABLETS PO ONE ×2 (11:01→14:33)
[2017-10-26 11:06] LABS: URINE PROTEIN 2+ (NEGATIVE)
[2017-10-26] MEDS ORDERED: HEPARIN NA (PORCINE) 5,000 UNITS/ML 1ML VIAL IVPUSH PRN ×2 (11:10)
[2017-10-26] MEDS ORDERED: ASPIRIN 81 MG CHEWABLE TABLETS ONE ×2 (11:13→14:41)
[2017-10-26] MEDS ORDERED: CLOPIDOGREL BISULFATE 75 MG TABLET (FP) ONE (11:14)
[2017-10-26] MEDS ORDERED: METOPROLOL TARTRATE 50 MG TABLET (FP) ONE (11:14)
[2017-10-26] MEDS ORDERED: HEPARIN - 25,000 UNIT in SODIUM CHLORIDE 495 ML IV SCH (11:15)
[2017-10-26] MEDS ORDERED: HEPARIN NA (PORCINE) 5,000 UNITS/ML 1ML VIAL IVPUSH ONE (11:15)
[2017-10-26 11:17] LABS: EPI CELLS RARE /HPF (FEW); URINE MUCUS RARE
[2017-10-26] MEDS ORDERED: HEPARIN INFUSION - 25,000 UNITS/500 ML INFUS.BAG IVPB ONE (11:28)
[2017-10-26] MEDS ORDERED: HEPARIN NA (PORCINE) 5,000 UNITS/ML 1ML VIAL ONE (11:28)
[2017-10-26] MEDS ORDERED: NITROGLYCERIN SUBLINGUAL 1/150 0.4 MG TAB SL PRN (11:39)
[2017-10-26] MEDS ORDERED: NITROGLYCERIN 50 MG/10 ML VIAL IVPB SCH (11:45)
[2017-10-26] MEDS ORDERED: NITROGLYCERIN 25MG/D5W 250ML 25 MG/250 ML ML IVPB SCH (12:00)
[2017-10-26] MEDS ORDERED: NITROGLYCERIN 25MG/D5W 250ML 25 MG/250 ML ML IVPB ONE (12:03)
--- NOTE | 2017-10-26 12:54 | CON.CARD ---
Cardiology Consult (text) - Consultation Consultation Note: CC: nstemi 72 yo with a PMH of CAD (s/p CABG + 5 stents, last placed 04/2017), HTN, hl, chronic pain, hyponatremia, presbyoesophagus, solid food dysphagia, diagnosed with esophageal stricture on upper GI/barium swallow (follows up with Dr. Hernandez , GI), copd who p/w acute onset chest tightness. Acute onset of sx's since last night, constant. + associated weakness. Endorses adherence to DAPT. Does not remember prior anginal sx's. Chronic poor po intake, nausea and dizziness due to dysphagia. Given ASA, plavix, heparin drip, ntg drip --> no sig improvement in chest heaviness. no sob, palps, orthopnea, pnd, le edema, bleeding, transient neurologic sx's. no f/c/s, vomiting, diarrhea, cough, congestion, rash, h/a, visual disturbances. pmhx/pshx: R hip replacement, CABG social hx: former smoker fam hx: no premature cad ros: per hpi Ambulatory Orders Clopidogrel Bisulfate [Plavix] 75 mg PO DAILY 06/26/17 Oxycodone HCl/Acetaminophen [Endocet 10-325 mg Tablet] 1 each PO PRN PRN Simvastatin 40 mg PO HS 06/26/17 Amlodipine Besylate [Norvasc -] 5 mg PO DAILY tablet 06/27/17 Aspirin Coated [Ecotrin -] 81 mg PO DAILY tablet.ec 06/27/17 Metoprolol Succinate [Toprol XL -] 100 mg PO DAILY tab.sr.24h 06/27/17 Isosorbide Mononitrate [Imdur -] 90 mg PO DAILY 08/10/17 Mag Hydrox/Al Hydrox/Simeth [Mylanta *Suspension*] 30 ml PO Q6H #1 cup 08/10/17 Nitroglycerin Sublingual [Nitrostat -] 0.4 mg SL PRN PRN 08/10/17 Ondansetron HCl [Zofran] 4 mg PO Q8H #15 tablet 08/10/17 Current Medications Heparin Sodium (Porcine) (Heparin -) 5,000 unit IVPUSH PRN PRN PRN Reason: Heparin Heparin Sodium (Porcine) 25, (000 unit/ Sodium Chloride) 500 mls @ 16 mls/hr IV TITR RICO; 800 UNIT/HR PRN Reason: Protocol Last Admin: 10/26/17 11:41 Dose: 800 unit/hr, 16 mls/hr Nitroglycerin/Dextrose (Nitroglycerin 25mg/D5w 250ml) 25 mg in 250 mls @ 6 mls/ hr IVPB TITR RICO PRN Reason: 10 MCG/MIN Last Admin: 10/26/17 12:00 Dose: 10 mcg/min, 6 mls/hr Nitroglycerin (Nitrostat -) 0.4 mg SL Q5M PRN PRN Reason: FOR CHEST PAIN Last Admin: 10/26/17 11:40 Dose: 0.4 mg Vital Signs - 24 hr 10/26/17 10/26/17 10/26/17 07:46 11:30 12:18 Temperature 97.5 F L 98.2 F 98.4 F Pulse Rate 86 Pulse Rate [ 96 H 74 Left Radial] Respiratory 18 18 18 Rate Blood Pressure 153/94 Blood Pressure 175/112 168/103 [Left Arm] O2 Sat by Pulse 100 96 96 Oximetry (%) Intake & Output 10/24/17 10/25/17 10/26/17 10/27/17 07:59 07:59 07:59 07:59 Weight 120 lb nad, calm jvd flat, neck supple ctab, nl effort rrr nl s1, s2. 2/6 murmur at apex. + bs soft nt nd, no hsm ext without e/c/c + dp/pt aaox3 no jaundice, diaphoresis. CBC, BMP 10/26/17 09:40 10/26/17 09:40 Laboratory Tests 10/26/17 09:40 Creatine Kinase 380 H Creatine Kinase Index 11.5 H* CK-MB (CK-2) 44.059 H Troponin I 16.90 H* Albumin 3.3 L 72 yo with a PMH of CAD (s/p CABG + 5 stents, last placed 04/2017), HTN, hl, chronic pain, hyponatremia, presbyoesophagus, solid food dysphagia, diagnosed with esophageal stricture on upper GI/barium swallow (follows up with Dr. Hernandez , GI), copd who p/w acute onset chest tightness. nstemi - most recent stents 04/2017 (prca and mrca). Also with da - ACS protocol with asa, plavix, heparin drip, high dose statin, Uptitrate NTG drip for goal sbp < 130 and ideally cp free. - npo - discussed with interventionalist. [place] [facility] [place].
[2017-10-26] MEDS ORDERED: ATORVASTATIN CA 80 MG TABLET (FP) PO ONE (14:32)
[2017-10-26] MEDS ORDERED: ATORVASTATIN CA 80 MG TABLET (FP) ONE (14:42)
--- NOTE | 2017-10-26 18:05 | EKG ---
Test Reason : Blood Pressure : / mmHG Vent. Rate : 091 BPM Atrial Rate : 091 BPM P-R Int : 196 ms QRS Dur : 106 ms QT Int : 378 ms P-R-T Axes : 019 049 074 degrees QTc Int : 464 ms SINUS RHYTHM WITH OCCASIONAL PREMATURE VENTRICULAR COMPLEXES VOLTAGE CRITERIA FOR LEFT VENTRICULAR HYPERTROPHY NONSPECIFIC ST AND T WAVE ABNORMALITY ABNORMAL ECG WHEN COMPARED WITH ECG OF 10-AUG-2017 12:35, T WAVE VARIATION Confirmed by ROWENA DE LA ROSA, ARMANDO ([id number]) on 10/26/2017 6:05:15 PM Referred By: Confirmed By:ARMANDO GUAMAN MD
[2017-10-26 18:45] VITALS: BP 157/89; PULSE 75; TEMP 98.2
[2017-10-26] MEDS ORDERED: METOPROLOL TARTRATE 25 MG TABLET (FP) PO SCH (20:00)
[2017-10-26] MEDS ORDERED: KCL 10 MEQ IVPB 10 MEQ/100 ML INFUS.BAG IVPB ONE (22:59)
[2017-10-26] MEDS ORDERED: METOPROLOL TARTRATE 25 MG TABLET (FP) ONE (23:23)
--- NOTE | 2017-10-26 23:41 | EKG ---
Test Reason : Blood Pressure : / mmHG Vent. Rate : 081 BPM Atrial Rate : 081 BPM P-R Int : 200 ms QRS Dur : 102 ms QT Int : 392 ms P-R-T Axes : 022 055 079 degrees QTc Int : 455 ms NORMAL SINUS RHYTHM MODERATE VOLTAGE CRITERIA FOR LVH, MAY BE NORMAL VARIANT ANTEROR INFARCT WITH LATERAL RECIPROCAL CHANGES VS. ISCHEMIA ABNORMAL ECG WHEN COMPARED WITH ECG OF 10-AUG-2017 12:35, PREMATURE VENTRICULAR COMPLEXES ARE NO LONGER PRESENT Confirmed by ARMANDO GUAMAN MD ([id number]) on 10/26/2017 11:40:43 PM Referred By: Confirmed By:ARMANDO GUAMAN MD
== END 2017-10-27 00:25 | disposition short-term general hospital (02) ==
LOC: JER 07:23
PROC: 3E033GC Introduction of Other Therapeutic Substance into Peripheral Vein, Percutaneous Approach (ICD-10-PCS; principal; 2017-10-26)
PROC: 3E033GC Introduction of Other Therapeutic Substance into Peripheral Vein, Percutaneous Approach (ICD-10-PCS; 2017-10-26)
PROC: 3E033GC Introduction of Other Therapeutic Substance into Peripheral Vein, Percutaneous Approach (ICD-10-PCS; 2017-10-26)
DX: I21.4 Non-ST elevation (NSTEMI) myocardial infarction (principal); I11.9 Hypertensive heart disease without heart failure; Z95.1 Presence of aortocoronary bypass graft; Z95.5 Presence of coronary angioplasty implant and graft; F17.210 Nicotine dependence, cigarettes, uncomplicated; K22.2 Esophageal obstruction; R13.14 Dysphagia, pharyngoesophageal phase
CPT/HCPCS: 36415; 71045-TC-FY; 80053; 81003; 81015; 82550; 82553; 84484; 85025; 85730; 93005; 93010; 93306-TC; 96365; 96368; 96375; 99285-25; J1644

== ENCOUNTER 2019-07-07 10:40 | Day surgery (SDC) | payer OTHER ==
[2019-07-06 14:01] VITALS: BMI 20.9
[~2019-07-07 10:40] MED LIST: ACETAMINOPHEN 325 MG TABLET (FP) PO PRN; CIPROFLOXACIN HCL 0.3% OPHTH 2.5ML BOTTLE OP SCH; KETOROLAC TROMETHAMINE 0.5% EYE DROP 1 DROP DROPS OP SCH; PHENYLEPHRINE 2.5% OPHTH SOLN 15 ML BOTTLE OP SCH; TOBRAMYCIN/DEXAMETHASONE OPHTH. OINTMENT 1 TUBE TP ONE; TROPICAMIDE 1% OPHTH SOLN 15 ML BOTTLE OP SCH
[2019-07-07] MEDS ORDERED: CIPROFLOXACIN HCL 0.3% OPHTH 2.5ML BOTTLE ONE (11:02)
[2019-07-07] MEDS ORDERED: KETOROLAC TROMETHAMINE 0.5% EYE DROP 1 DROP DROPS ONE (11:02)
[2019-07-07] MEDS ORDERED: TROPICAMIDE 1% OPHTH SOLN 15 ML BOTTLE ONE (11:02)
[2019-07-07] MEDS ORDERED: PHENYLEPHRINE 2.5% OPHTH SOLN 15 ML BOTTLE ONE (11:02)
[2019-07-07] MEDS ORDERED: KETOROLAC TROMETHAMINE 0.5% EYE DROP 1 DROP DROPS OD ONE ×3 (11:30→11:50)
[2019-07-07] MEDS ORDERED: PHENYLEPHRINE 2.5% OPHTH SOLN 15 ML BOTTLE OD ONE ×3 (11:30→11:50)
[2019-07-07] MEDS ORDERED: TROPICAMIDE 1% OPHTH SOLN 15 ML BOTTLE OD ONE ×3 (11:30→11:50)
[2019-07-07] MEDS ORDERED: CIPROFLOXACIN HCL 0.3% OPHTH 2.5ML BOTTLE OD ONE ×3 (11:30→11:50)
--- NOTE | 2019-07-07 12:55 | HP ---
History & Physical Update - History History: No Change - Physical Physical: No Change - Assessment Assessment: No Change - Plan Plan: No Change (H and P reviewed from 06/14/2019, DR. Mendez , no changes)
--- NOTE | 2019-07-07 12:58 | HP ---
- Patient Scheduled date of Surgery: 07/07/19 Scheduled Surgical Procedure: Phacoemulsification and cataract extraction with PCIOL Affected Eye: Right Chief Complaint (Indication for surgery): Decreased vision affecting ADLs - Ocular History Other Eye History: Other (PVD OD) Eye Medications: vigamox Previous Eye Surgery: none - Medical History Illnesses: Cardiac Disorders (Chest pain, SOB, KS, Valve disease) (s/p CABG, afib, CHF (EF 52%)), Hypertension, Other (PAD) Current Medications: Ambulatory Orders Aspirin Coated [Ecotrin -] 81 mg PO DAILY tablet.ec 06/27/17 Metoprolol Succinate [Toprol XL -] 100 mg PO DAILY tab.sr.24h 06/27/17 Isosorbide Mononitrate [Imdur -] 30 mg PO DAILY 08/10/17 Amiodarone HCl 200 mg PO DAILY 07/06/19 Furosemide [Lasix] 40 mg PO ASDIR 07/06/19 Gabapentin 300 mg PO TID 07/06/19 Atorvastatin Ca [Lipitor] 40 mg PO HS 07/07/19 Mirtazapine 15 mg PO DAILY 07/07/19 Quetiapine Fumarate [Seroquel -] 25 mg PO HS 07/07/19 Allergies/Adverse Reactions: Allergies Allergy/AdvReac Type Severity Reaction Status Date / Time lisinopril Allergy Verified 10/26/17 07:49 Ocular Examination - Best Corrected Visual Acuity Distance: Right eye: 20/200 Distance: Left eye: 20/60 - External/Slit Lamp Examination Abnormalities: none - Intraocular Pressure Intraocular Pressure - Right eye: 15 Intraocular Pressure-Left eye: 15 - Lens Lens: 3+ NS vacuoles - Vitreous/Retina Vitreous/Retina: C:D 0.15 m/v/p wnl + PVD - Special Examination M - Right eye: -4.75 M - Left eye: -2.00-1.75 x 075 K - Right eye: 44/44.5 x025 K - Left eye: 43.25/43.75 x 160 AL - Right eye: 24.65 AL - Left eye: 24.60 IOL bag: +17.0 AUOOTO IOL sulcus: +16.5 [id number] IOL AC: +14.0 MTA 4UO - Impression Impression: Cataract Right Eye - Plan Plan: Phacoemulsification and cataract extraction - IOL Right eye Post-hospital care will be provided in office on: 07/08/19
[2019-07-07] MEDS ORDERED: MIDAZOLAM HCL 2 MG/2 ML SINGLE DOSE VIAL ONE (13:06)
[2019-07-07] MEDS ORDERED: TETRACAINE 0.5% OPHTH SOLN 2 ML BOTTLE TP ONE (13:12)
[2019-07-07] MEDS ORDERED: POVIDONE-IODINE 5% OPHTHALMIC PREP 30 ML SOLUTION OD ONE (13:14)
[2019-07-07] MEDS ORDERED: BSS (NA/CA/MG/K) BALANCED SALT SOLUTION OPHTH SOLN 15 ML BOTTLE OD ONE (13:22)
[2019-07-07] MEDS ORDERED: CHONDROITIN SU A/HYALUR SOD 1 KIT IO ONE (13:22)
[2019-07-07] MEDS ORDERED: LIDOCAINE HCL 1% PRESERVATIVE FREE - 30ML VIAL IO ONE (13:22)
[2019-07-07] MEDS ORDERED: EPINEPHrine/PF 1 MG/1 ML (1:1,000) AMPULE SQ ONE (13:28)
[2019-07-07] MEDS ORDERED: ePHEDrine SULFATE 50 MG/1 ML AMPULE ONE (13:40)
[2019-07-07] MEDS ORDERED: TOBRAMYCIN/DEXAMETHASONE OPHTH. OINTMENT 1 TUBE TP ONE (13:40)
--- NOTE | 2019-07-07 13:49 | OP ---
Ophthalmology Operative Note Pre-Operative Diagnosis: Cataract Affected Eye: Right Operation: Phacoemulsification and cataract extraction with PCIOL Findings: mature cataract right eye Post-Operative Diagnosis: Other (mature cataract right eye) Explosives Worker: None Anesthesiologist: Eddie Coello Anesthesia: Topical Specimens Removed: none Estimated blood loss: < 1cc Drains & Tubes with Location: none Operative Report Dictated: Yes
--- NOTE | 2019-07-07 14:10 | OP ---
DATE OF OPERATION: 07/07/2019 PREOPERATIVE DIAGNOSIS: Nuclear sclerotic cataract, right eye. POSTOPERATIVE DIAGNOSIS: Mature cataract, right eye. PROCEDURE: Phacoemulsification and cataract extraction with insertion of posterior chamber intraocular lens, right eye. SURGEON: Malrey Degroot MD MAINFRAME SYSTEMS ENGINEER: None. ANESTHESIA: Topical. ANESTHESIOLOGIST: Eddie Coello M.D. OPERATIVE PROCEDURE: The patient received Tetracaine eye drops and was gently sedated and prepped and draped in the usual sterile fashion so as to expose only the right eye. Ophthalmic Betadine was instilled into the inferior fornix and lashes were taped out of the surgical field. An eyelid speculum was placed into the right eye. Paracentesis was made in superior temporal clear cornea at the limbus. Then 0.5 mL of nonpreserved lidocaine 1% was injected into the anterior chamber and then 1 mL of dilute epinephrine 1:10,000 was injected into the anterior chamber to improve pupillary dilation. Viscoelastic material was instilled into the anterior chamber via the paracentesis. A 2.4-mm keratome blade was then used to create the main incision in temporal clear cornea at the limbus. A continuous curvilinear capsulorrhexis was performed using a cystotome and Utrata forceps. Hydrodissection of the lens cortex was performed using BSS on a cannula until the nucleus was noted to be freely rotating. The phacoemulsification tip was then inserted via the main wound and used to scope 2 perpendicular grooves into the lens nucleus. The nucleus was cracked into 4 quadrants. Each quadrant was lifted out of the capsule into the iris plane and individually phacoemulsified. The remaining cortical material was then aspirated using the irrigation/aspiration port. The capsular bag was inflated using ProVisc and a preloaded AcrySof lens model [id number] power +17.0 diopters was injected into the capsular bag. It was centered using a Sinskey hook. The residual viscoelastic material was removed from the anterior chamber using irrigation and aspiration. The wound edges were hydrated using BSS. The wound was tested for leakage and was found to be watertight. Tobradex ointment was placed in the eye, and the speculum was removed from the eye, and the eyelid was closed. A sterile dressing and shield were placed over the eye. The patient was transferred to the recovery room in stable condition, told to follow up in 1 day. MARLEY DEGROOT M.D. MARIA [id number]
[2019-07-07 15:10] VITALS: BP 131/49; PULSE 58; TEMP 97.3
[2019-07-07] MEDS ORDERED: CHONDROITIN SU A/HYALUR SOD 1 KIT ONE (15:32)
== END 2019-07-07 14:50 | disposition home or self-care (01) ==
LOC: JASU-SURG 10:40
PROVIDERS: ATTEND Ophthalmology
PROC: 08RJ3JZ Replacement of Right Lens with Synthetic Substitute, Percutaneous Approach (ICD-10-PCS; principal; 2019-07-07 13:00)
DX: H26.9 Unspecified cataract (principal)

== ENCOUNTER 2019-07-14 06:36 | Day surgery (SDC) | payer OTHER ==
[2019-07-12 15:56] VITALS: BMI 20.9
[2019-07-14] MEDS ORDERED: PHENYLEPHRINE 2.5% OPHTH SOLN 15 ML BOTTLE ONE (06:44)
[2019-07-14] MEDS ORDERED: TROPICAMIDE 1% OPHTH SOLN 15 ML BOTTLE ONE (06:44)
[2019-07-14] MEDS ORDERED: CIPROFLOXACIN HCL 0.3% OPHTH 2.5ML BOTTLE ONE (06:44)
[2019-07-14] MEDS ORDERED: KETOROLAC TROMETHAMINE 0.5% EYE DROP 1 DROP DROPS ONE (06:44)
[2019-07-14] MEDS ORDERED: KETOROLAC TROMETHAMINE 0.5% EYE DROP 1 DROP DROPS OS ONE ×3 (06:45→07:05)
[2019-07-14] MEDS ORDERED: KETOROLAC TROMETHAMINE 0.5% EYE DROP 1 DROP DROPS OP SCH (06:45)
[2019-07-14] MEDS ORDERED: TROPICAMIDE 1% OPHTH SOLN 15 ML BOTTLE OP SCH (06:45)
[2019-07-14] MEDS ORDERED: ACETAMINOPHEN 325 MG TABLET (FP) PO PRN (06:45)
[2019-07-14] MEDS ORDERED: CIPROFLOXACIN HCL 0.3% OPHTH 2.5ML BOTTLE OP SCH (06:45)
[2019-07-14] MEDS ORDERED: TROPICAMIDE 1% OPHTH SOLN 15 ML BOTTLE OS ONE ×3 (06:45→07:05)
[2019-07-14] MEDS ORDERED: PHENYLEPHRINE 2.5% OPHTH SOLN 15 ML BOTTLE OS ONE ×3 (06:45→07:05)
[2019-07-14] MEDS ORDERED: PHENYLEPHRINE 2.5% OPHTH SOLN 15 ML BOTTLE OP SCH (06:45)
[2019-07-14] MEDS ORDERED: CIPROFLOXACIN HCL 0.3% OPHTH 2.5ML BOTTLE OS ONE ×3 (06:45→07:05)
[2019-07-14] MEDS ORDERED: EPINEPHrine/PF 1 MG/1 ML (1:1,000) AMPULE ONE (07:10)
[2019-07-14] MEDS ORDERED: TOBRAMYCIN/DEXAMETHASONE OPHTH. OINTMENT 1 TUBE ONE (07:10)
[2019-07-14] MEDS ORDERED: ACETYLCHOLINE 1:100 INTRA-OCUL 20 MG/2 ML KIT ONE (07:11)
[2019-07-14] MEDS ORDERED: POVIDONE-IODINE 5% OPHTHALMIC PREP 30 ML SOLUTION ONE (07:11)
[2019-07-14] MEDS ORDERED: TETRACAINE 0.5% OPHTH SOLN 2 ML BOTTLE ONE (07:11)
[2019-07-14] MEDS ORDERED: LIDOCAINE HCL/PF 1% SDV 5ML VIAL ONE (07:11)
--- NOTE | 2019-07-14 07:27 | HP ---
- Patient Scheduled date of Surgery: 07/14/19 Scheduled Surgical Procedure: Phacoemulsification and cataract extraction with PCIOL (mature) Affected Eye: Left Chief Complaint (Indication for surgery): Decreased vision affecting ADLs - Ocular History Other Eye History: Other (epithelial dystrophy) Eye Medications: vigamox Previous Eye Surgery: s/p ce/pciol OD - Medical History Illnesses: Cardiac Disorders (Chest pain, SOB, [place], Valve disease) (s/p CABG and stents) Current Medications: Ambulatory Orders Aspirin Coated [Ecotrin -] 81 mg PO DAILY tablet.ec 06/27/17 Metoprolol Succinate [Toprol XL -] 100 mg PO DAILY tab.sr.24h 06/27/17 Isosorbide Mononitrate [Imdur -] 30 mg PO DAILY 08/10/17 Amiodarone HCl 200 mg PO DAILY 07/06/19 Furosemide [Lasix] 40 mg PO ASDIR 07/06/19 Gabapentin 300 mg PO TID 07/06/19 Atorvastatin Ca [Lipitor] 40 mg PO HS 07/07/19 Mirtazapine 15 mg PO DAILY 07/07/19 Quetiapine Fumarate [Seroquel -] 25 mg PO HS 07/07/19 Allergies/Adverse Reactions: Allergies Allergy/AdvReac Type Severity Reaction Status Date / Time lisinopril Allergy Verified 07/12/19 15:56 Ocular Examination - Best Corrected Visual Acuity Distance: Right eye: 20/60 Distance: Left eye: 20/60 - External/Slit Lamp Examination Abnormalities: epi dystrophy - Intraocular Pressure Intraocular Pressure - Right eye: 15 Intraocular Pressure-Left eye: 15 - Lens Lens: 3+NS - Vitreous/Retina Vitreous/Retina: C:D 0.15 m/v/p wnl - Special Examination M - Right eye: +1.00-1.25 x159 M - Left eye: -2.00-1.75 x 075 K - Right eye: 43.50/44.25 x 075 K - Left eye: 43.25/43.75 x 160 AL - Right eye: 24.65 AL - Left eye: 24.60 IOL bag: +17.5 AUOOTO IOL sulcus: +17.0 MN60AC IOL AC: +14.5 MTA 4uo - Impression Impression: Cataract Left Eye (mature) - Plan Plan: Phacoemulsification and cataract extraction - IOL Left eye Post-hospital care will be provided in office on: 07/15/19
--- NOTE | 2019-07-14 07:28 | HP ---
History & Physical Update - History History: No Change - Physical Physical: No Change - Assessment Assessment: No Change - Plan Plan: No Change (H and P reviewed from 06/14/[address] Mendez, no changes)
[2019-07-14] MEDS ORDERED: MIDAZOLAM HCL 2 MG/2 ML SINGLE DOSE VIAL ONE (07:41)
[2019-07-14] MEDS ORDERED: TETRACAINE 0.5% HCL 0.6ML DROPPER.BOTTLE OS ONE ×2 (07:44→07:46)
[2019-07-14] MEDS ORDERED: TOBRAMYCIN/DEXAMETHASONE OPHTH. OINTMENT 1 TUBE OS ONE ×2 (07:44→08:16)
[2019-07-14] MEDS ORDERED: CHONDROITIN SU A/HYALUR SOD 1 KIT IO ONE ×2 (07:44→08:10)
[2019-07-14] MEDS ORDERED: LIDOCAINE HCL 1% PRESERVATIVE FREE - 30ML VIAL IJ ONE (07:53)
[2019-07-14] MEDS ORDERED: EPINEPHrine/PF 1 MG/1 ML (1:1,000) AMPULE SQ ONE ×2 (07:55→07:57)
--- NOTE | 2019-07-14 08:28 | OP ---
Ophthalmology Operative Note Pre-Operative Diagnosis: Mature cataract Affected Eye: Left Operation: Phacoemulsification and cataract extraction with PCIOL Findings: mature cataract left eye Post-Operative Diagnosis: Same as Pre-op [place] Farmer: None Anesthesiologist: Antione Gómez Anesthesia: Topical Specimens Removed: none Estimated blood loss: < 1cc Drains & Tubes with Location: none Operative Report Dictated: Yes
[2019-07-14 09:15] VITALS: BP 134/66; PULSE 56; TEMP 97.5
--- NOTE | 2019-07-14 10:22 | OP ---
DATE OF OPERATION: DATE OF DICTATION: 07/14/2019 PREOPERATIVE DIAGNOSIS: Mature cataract, left eye. POSTOPERATIVE DIAGNOSIS: Mature cataract, left eye. PROCEDURE: Phacoemulsification and cataract extraction with insertion of posterior chamber intraocular lens, left eye. SURGEON: Marley Degroot MD WATER QUALITY ANALYST: None. ANESTHESIA: Topical. ANESTHESIOLOGIST: Antione Gómez MD OPERATIVE PROCEDURE: The patient received Tetracaine eye drops and was gently sedated and prepped and draped in the usual sterile fashion so as to expose only the left eye. Ophthalmic Betadine was instilled into the inferior fornix and lashes were taped out of the surgical field. An eyelid speculum was placed into the left eye. Paracentesis was made in inferior temporal clear cornea at the limbus. Then 0.5 mL of nonpreserved lidocaine 1% was injected into the anterior chamber and then 1 mL of dilute epinephrine 1:10,000 was injected into the anterior chamber to improve pupillary dilation. Viscoelastic material was instilled into the anterior chamber via the paracentesis. A 2.4-mm keratome blade was then used to create the main incision in temporal clear cornea at the limbus. A continuous curvilinear capsulorrhexis was performed using a cystotome and Utrata forceps. Hydrodissection of the lens cortex was performed using BSS on a cannula until the nucleus was noted to be freely rotating. The phacoemulsification tip was then inserted via the main wound and used to scope 2 perpendicular grooves into the lens nucleus. The nucleus was cracked into 4 quadrants. Each quadrant was lifted out of the capsule into the iris plane and individually phacoemulsified. The remaining cortical material was then aspirated using the irrigation/aspiration port. The capsular bag was inflated using ProVisc and a preloaded AcrySof lens model [id number] power +17.5 diopters was injected into the capsular bag. It was centered using a Sinskey hook. The residual viscoelastic material was removed from the anterior chamber using irrigation and aspiration. The wound edges were hydrated using BSS. The wound was tested for leakage and was found to be watertight. Tobradex ointment was placed in the eye, and the speculum was removed from the eye, and the eyelid was closed. A sterile dressing and shield were placed over the eye. The patient was transferred to the recovery room in stable condition, told to follow up in 1 day. MARLEY DEGROOT M.D. MARIA [id number]
== END 2019-07-14 09:10 | disposition home or self-care (01) ==
LOC: JASU-SURG 06:36
PROVIDERS: ATTEND Ophthalmology
PROC: 08RK3JZ Replacement of Left Lens with Synthetic Substitute, Percutaneous Approach (ICD-10-PCS; principal; 2019-07-14 08:30)
DX: H25.89 Other age-related cataract (principal)